=== PATIENT | male | born 1950 | race Caucasian/White ===

== ENCOUNTER → 2016-08-30 | Outpatient (CLI) | payer MEDICARE ==
[~2016-08-30] MED LIST: ADVAIR 250-501 EACH IH; ASA CHILDREN'S81 MG PO; CARDIZEM CD240 M1 PO; CARDIZEM120 MG PO; DELTASONE DPS1 MG PO; DUONEB DPS3 ML IH; FLOMAX DPS0.4 MG PO; HABITROL DPS21 MG TD; HYDRODIURIL-DPS25 MG PO; LOPRESSOR100 MG PO; MIRALAX17 GM PO; NORVASC5 MG PO; PROAIR RESPICL90 MCG IH; SENOKOT S1 TAB PO; VASOTEC DPS20 MG PO; VENTOLIN HFA8 GM IH; XARELTO15 MG PO; ZITHROMAX500 MG PO
== END | disposition home or self-care (01) ==
LOC: RAD.S 13:00
DX: J44.9 Chronic obstructive pulmonary disease, unspecified (principal); J43.9 Emphysema, unspecified; J98.4 Other disorders of lung

== ENCOUNTER 2016-09-03 10:09 | Emergency (ER) | payer MEDICARE ==
--- NOTE | 2016-09-06 09:05 | ER ---
ADMIT: 09/03/2016 RM/LOC: ER [facility] MR#: [id number] [address] [id number] ANDREW GUZMAN [address] [place] [address] Emergency Room Report SEX: M AGE: 66 : 1950 DATE: 09/03/2016 TIME: 1005 hours. Please refer to my T-sheet for complete H and P. Briefly, the patient is a 66-year-old who comes in with palpitations. It started yesterday. He has had problems with atrial fibrillation in the past. He is anticoagulated on Xarelto, has not missed a dose. He said that he knows he feels a little bit weak is his only complaint when his pulse starts racing. PHYSICAL EXAMINATION: VITAL SIGNS: His blood pressure is 145/68, pulse 124, respirations 15, temp 99.6, and saturating 94%. GENERAL: No acute distress. HEENT: Grossly normal. LUNGS: Clear. HEART: Irregular regular. No murmur. ABDOMEN: Soft. SKIN: No rash. EMERGENCY DEPARTMENT COURSE: I did do an EKG, was atrial fib, rates were varying from 130s to 160s. We established an IV, gave Lopressor, total 7.5 mg IV, had his rate controlled and his blood pressure is okay. We were able to get a confirmation of his labs including complete metabolic profile, CBC, magnesium that were done over in the office, essentially were unremarkable. He was pretty much asymptomatic and ready for discharge. ASSESSMENT: 1. Atrial fibrillation with rapid ventricular response. Treated in the Emergency Department with Lopressor 7.5, total mg IV with rate control. 2. History of atrial fibrillation, anticoagulated. PLAN: Continue care. Follow up with [facility]. Return if worse. Chico Lares MD/ petra JOB #: [id number] CC: Chico Lares MD, Attending Physician Uzma Barksdale APRN, Family Physician Uzma Barksdale APRN
== END 2016-09-03 11:50 | disposition home or self-care (01) ==
LOC: ER 10:09
DX: I48.91 Unspecified atrial fibrillation (principal); I10 Essential (primary) hypertension; Z87.891 Personal history of nicotine dependence; Z79.899 Other long term (current) drug therapy; Z79.01 Long term (current) use of anticoagulants